=== PATIENT | female | born 1980 ===

== ENCOUNTER 2024-07-28 05:30 | Day surgery (SDC) | payer OTHER ==
[2024-07-23 15:01] VITALS: BP 116/77
[2024-07-23 15:36] LABS: INR 0.98; PARTIAL THROMBOPLASTIN TIME 28.8 SECONDS (22.0-34.0); PROTHROMBIN TIME 10.7 SECONDS (9.0-11.5)
[~2024-07-28] VITALS: Ht 157.5 cm; Wt 59.9 kg
[~2024-07-28 05:30] MED LIST: CEFTRIAXONE SODIUM 2,000 MG VIAL IV SCH; METRONIDAZOLE/SODIUM CHLORIDE 500 MG/100 ML PIGGYBACK IV SCH; PRESERVISION A1 EAC1 PO; TYLENOL-CODEINE1 TAB PO
[2024-07-28] MEDS ORDERED: METRONIDAZOLE/SODIUM CHLORIDE 500 MG/100 ML PIGGYBACK IV ONE (07:16)
[2024-07-28] MEDS ORDERED: BUPIVACAINE HCL/Mpf 0.5% 10ML VIAL ONE (07:16)
[2024-07-28] MEDS ORDERED: CEFTRIAXONE SODIUM 2,000 MG VIAL ONE (07:16)
[2024-07-28] MEDS ORDERED: LIDOCAINE HCL 1%/EPINEPHRINE 20ML VIAL IJ ONE (07:16)
[2024-07-28] MEDS ORDERED: NEURONTIN300 MG PO (08:19)
[2024-07-28] MEDS ORDERED: CELECOXIB200 MG PO (08:19)
[2024-07-28] MEDS ORDERED: TRAMADOL HCL50 MG PO (08:20)
[2024-07-28] MEDS ORDERED: MORPHINE SULFATE 4 MG/ML VIAL IV ONE (09:40)
== END 2024-07-28 11:10 | disposition home or self-care (01) ==
LOC: CIR.AMB 05:30
PROVIDERS: ATTEND Surgery
DX: D37.3 Neoplasm of uncertain behavior of appendix (principal)